=== PATIENT | male | born 1980 | race Two or more races ===

== ENCOUNTER 2019-05-31 10:44 | Emergency (ER) | payer OTHER ==
[2019-05-31 10:49] VITALS: BMI 36.6
--- NOTE | 2019-05-31 12:58 | PDOC ---
History of Present Illness - General Chief Complaint: Constipation Stated Complaint: CONSTIPATION Time Seen by Provider: 05/31/19 11:02 History Source: Patient Exam Limitations: No Limitations - History of Present Illness Travel History: No Initial Comments: 05/31/19 11:53 39-year-old male presents the emergency room for evaluation of decreased bowel movements over the past 2 days along with decreased appetite. patient with history of cerebral palsy but has a normal appetite otherwise. Brother states offered soup this morning but the patient did not tolerate nor did he vomit. Patient has no fever, abdominal distention, Increased irritability or anger. Patient does have history of ruptured appendicitis with exploratory surgery a few years ago but has not had history of constipation or obstruction. Timing/Duration: reports: changing over time Past History - Travel Traveled outside of the country in the last 30 days: No Close contact w/someone who was outside of country & ill: No - Past Medical History Allergies/Adverse Reactions: Allergies Allergy/AdvReac Type Severity Reaction Status Date / Time No Known Allergies Allergy Verified 05/31/19 10:50 Home Medications: Ambulatory Orders Amox-Tr/K Cl [Augmentin 500Mg Tablet] 1 tab PO BID #14 tablet 09/09/13 Famotidine [Pepcid -] 20 mg PO BID 09/09/13 Metoprolol Succinate [Toprol XL -] 25 mg PO DAILY 09/09/13 Sennosides [Senna Lax] 2 tab PO ONCE #2 tablet 05/31/19 COPD: No HTN: Yes - Surgical History Appendectomy: Yes - Psycho Social/Smoking Cessation Hx Smoking History: Never smoked Information on smoking cessation initiated: No Hx Alcohol Use: No Drug/Substance Use Hx: No Patient Lives Alone: No Lives with/in: parents Review of Systems - Review of Systems Able to Perform ROS?: Yes Constitutional: No: Symptoms Reported HEENTM: No: Symptoms Reported Respiratory: Yes: Symptoms reported Cardiac (ROS): No: Symptoms Reported ABD/GI: Yes: Constipated (x 2), Poor Appetite Musculoskeletal: Yes: See HPI Integumentary: No: Symptoms Reported Neurological: No: Symptoms reported Endocrine: No: Symptoms Reported Hematologic/Lymphatic: No: Symptoms Reported *Physical Exam - Vital Signs Last Vital Signs Temp Pulse Resp BP Pulse Ox 85 17 135/73 98 05/31/19 10:48 05/31/19 10:48 05/31/19 10:48 05/31/19 10:48 - Physical Exam General Appearance: Yes: Nourished, Appropriately Dressed. No: Apparent Distress HEENT: positive: Pharynx Normal Neck: positive: Supple Respiratory/Chest: positive: Lungs Clear, Normal Breath Sounds. negative: Respiratory Distress, Accessory Muscle Use Cardiovascular: positive: Regular Rhythm, Regular Rate. negative: Murmur Gastrointestinal/Abdominal: positive: Normal Bowel Sounds, Soft. negative: Distended, Tenderness Extremity: positive: Normal Inspection Integumentary: positive: Normal Color, Warm, Moist Neurologic: positive: Normal Mood/Affect (Active and at baseline as per brother) , Motor Strength 5/5 (Moves his upper extremities without difficulty) ED Treatment Course - RADIOLOGY Radiology Studies Ordered: Category Date Time Status ABDOMEN FLAT & UPRIGHT [RAD] Stat Radiology 05/31/19 11:04 Completed Medical Decision Making - Medical Decision Making 05/31/19 11:59 Chief complaint: Patient here with poor appetite this a.m. associated with no bowel movement for the past 2 days. Father states last BM normal and soft. Patient has no history of obstruction or constipation. Patient is wheelchair- bound with history of CP exam: Bowel sounds present x4 vital signs stable, otherwise normal clinical exam. Plan: Abdominal flat and upright ordered 05/31/19 12:59 X-ray essentially negative for acute pathology. Patient given orange juice which he tolerated without difficulty or noted discomfort. Recommended brother try fiber enriched foods and will give a dose of senna Discharge - Discharge Information Problems reviewed: Yes Clinical Impression/Diagnosis: Decreased frequency of bowel movements Condition: Improved Disposition: HOME - Additional Discharge Information Prescriptions: Sennosides [Senna Lax] 2 tab PO ONCE #2 tablet - Follow up/Referral Referrals: Leodan Russell MD [Primary Care Provider] - - Patient Discharge Instructions Additional Instructions: Please give patient plenty of water and give fiber enriched foods. Please also give senna today as prescribed. If symptoms do not improve or worsen please call the ER return to the ER. - Post Discharge Activity
[2019-05-31 13:12] VITALS: BP 123/80; PULSE 83
== END 2019-05-31 13:12 | disposition home or self-care (01) ==
LOC: JER 10:44
DX: R19.4 Change in bowel habit (principal); I10 Essential (primary) hypertension; G80.9 Cerebral palsy, unspecified; Z99.3 Dependence on wheelchair
CPT/HCPCS: 74019-TC-FY; 99281-25

== ENCOUNTER 2021-04-28 09:56 | Observation (INO) | payer OTHER ==
[2021-04-28] MEDS ORDERED: ACETAMINOPHEN 1000 MG/100 ML VIAL IVPB ONE (10:45)
[2021-04-28] MEDS ORDERED: ACETAMINOPHEN INJECTION 100 ML IVPB ONE (10:53)
[2021-04-28 11:25] LABS: BASO % 0.5 % (0-2.0); EOS % 0.5 % (0-4.5); HEMATOCRIT 42.2 % (35.4-49); HEMOGLOBIN 14.2 GM/dL (11.7-16.9); LYMPH % 18.5 % (8-40); MCH 28.8 pg (25.7-33.7); MCHC 33.7 g/dl (32.0-35.9); MEAN CELL VOLUME 85.4 fl (80-96); MEAN PLT VOLUME 10.6 fl (7.5-11.1); MONO % 10.2 % (3.8-10.2); NEUT % 70.3 % (42.8-82.8); PLATELET COUNT 75 10^3/uL (134-434); RBC 4.94 M/mm3 (4.00-5.60); RDW 13.1 % (11.9-15.9); WHITE BLOOD COUNT 6.6 K/mm3 (4.0-10.0)
[2021-04-28 11:34] LABS: INR 1.23 (0.83-1.09); PROTHROMBIN TIME (PATIENT) 14.4 SEC (9.7-13.0)
[2021-04-28 11:36] LABS: ACTIVATED PTT 27.7 SECONDS (25.2-36.5)
[2021-04-28 11:54] LABS: CHLORIDE 110 mmol/L (98-107); SODIUM 141 mmol/L (136-145)
[2021-04-28 11:55] LABS: CALCIUM 8.6 mg/dL (8.5-10.1)
[2021-04-28 11:56] LABS: ALBUMIN 3.3 g/dl (3.4-5.0); ANION GAP 7 MMOL/L (8-16); BLOOD UREA NITROGEN 18.3 mg/dL (7-18); CO2 25 mmol/L (21-32); GLUCOSE,RANDOM 125 mg/dL (74-106)
[2021-04-28 11:59] LABS: CREATININE 1.1 mg/dL (0.55-1.3); SGOT/AST 45 U/L (15-37); SGPT/ALT 79 U/L (13-61)
[2021-04-28 12:01] LABS: BILIRUBIN,TOTAL 0.5 mg/dL (0.2-1); TOT PROT 6.9 g/dl (6.4-8.2)
[2021-04-28 12:02] LABS: ALK PHOS 70 U/L (45-117)
[2021-04-28] MEDS ORDERED: METOPROLOL TARTRATE 25 MG TABLET (FP) PO ONE (16:47)
[2021-04-28 16:53] LABS: EPI CELLS 6 /uL (0-25.1); HYALINE CASTS 0 /uL (0-3.1); URINE APPEARANCE CLEAR; URINE BACTERIA 25 /uL (0-1359); URINE BILIRUBIN NEGATIVE (NEGATIVE); URINE COLOR YELLOW; URINE GLUCOSE (UA) NEGATIVE (NEGATIVE); URINE KETONE NEGATIVE (NEGATIVE); URINE LEUK ESTERASE NEGATIVE (NEGATIVE); URINE NITRITE NEGATIVE (NEGATIVE); URINE PROTEIN 1+ (NEGATIVE); URINE RBC 13 /uL (0-23.9); URINE WBC 8 /uL (0-25.8)
[2021-04-28] MEDS ORDERED: SODIUM CHLORIDE 0.9% 500 ML INFUS.BAG IV ONE (17:26)
[2021-04-28] MEDS ORDERED: dilTIAZem HCL 50 MG/10 ML - 10 ML VIAL IVPUSH ONE (17:30)
[2021-04-28] MEDS ORDERED: METOPROLOL TARTRATE 25 MG TABLET (FP) ONE (17:36)
[2021-04-28] MEDS ORDERED: dilTIAZem HCL 125 MG/25 ML - 25 ML VIAL ONE (17:36)
[2021-04-28] MEDS ORDERED: FAMOTIDINE 20 MG/50 ML IVPB 20 MG/50 ML MG IVPB ONE (18:18)
[2021-04-28] MEDS ORDERED: SENNOSIDES 8.6MG TABLET (FP) PO ONE ×2 (19:00→19:28)
[2021-04-28] MEDS ORDERED: METOPROLOL TARTRATE 5 MG/5 ML VIAL ONE (22:39)
[2021-04-28] MEDS ORDERED: metoPROLOL SUCCINATE 25 MG TAB.SR.24H (FP) ONE (22:39)
[2021-04-28] MEDS ORDERED: FAMOTIDINE 20 MG TABLET ONE (22:39)
[2021-04-28] MEDS: METOPROLOL TARTRATE 5 MG/5 ML VIAL IVPUSH PRN (22:57)
[2021-04-28] MEDS: metoPROLOL SUCCINATE 25 MG TAB.SR.24H (FP) PO SCH (22:57)
[2021-04-28] MEDS: FAMOTIDINE 20 MG TABLET PO SCH (22:57)
[2021-04-28 23:22] LABS: CHOLESTEROL 181 mg/dL (50-200); TRIGLYCERIDES 84 mg/dL (0-150)
[2021-04-28 23:23] LABS: LDL CHOLESTEROL (ONLY SJRH) 100 mg/dL (5-100)
[2021-04-28 23:25] LABS: HDL CHOLESTEROL 60 mg/dL (40-60)
[2021-04-28 23:26] LABS: N-TERMINAL BNP 3217.7 pg/ml (5-125)
[2021-04-29 08:03] LABS: CALCIUM 8.3 mg/dL (8.5-10.1)
[2021-04-29 08:04] LABS: MAGNESIUM 2.3 mg/dL (1.8-2.4)
[2021-04-29 08:07] LABS: CREATININE 0.9 mg/dL (0.55-1.3)
[2021-04-29] MEDS: metoPROLOL SUCCINATE 25 MG TAB.SR.24H (FP) PO SCH ×2 (10:04→21:15)
[2021-04-29] MEDS: FAMOTIDINE 20 MG TABLET PO SCH ×2 (10:04→21:15)
[2021-04-29 11:35] VITALS: BMI 27.0
[2021-04-29] MEDS: METOPROLOL TARTRATE 5 MG/5 ML VIAL IVPUSH PRN ×2 (13:28→17:01)
[2021-04-30 07:19] LABS: BASO % 0.5 % (0-2.0); EOS % 0.9 % (0-4.5); HEMATOCRIT 36.8 % (35.4-49); HEMOGLOBIN 12.3 GM/dL (11.7-16.9); LYMPH % 38.3 % (8-40); MCH 28.6 pg (25.7-33.7); MCHC 33.3 g/dl (32.0-35.9); MEAN CELL VOLUME 85.9 fl (80-96); MEAN PLT VOLUME 11.4 fl (7.5-11.1); MONO % 13.3 % (3.8-10.2); PLATELET COUNT 71 10^3/uL (134-434); RBC 4.29 M/mm3 (4.00-5.60); WHITE BLOOD COUNT 5.7 K/mm3 (4.0-10.0)
[2021-04-30 07:36] LABS: CALCIUM 8.3 mg/dL (8.5-10.1)
[2021-04-30 07:37] LABS: BLOOD UREA NITROGEN 23.6 mg/dL (7-18)
[2021-04-30 07:41] LABS: BILIRUBIN,TOTAL 0.4 mg/dL (0.2-1); TOT PROT 5.9 g/dl (6.4-8.2)
[2021-04-30 07:45] LABS: ALBUMIN 2.6 g/dl (3.4-5.0)
[2021-04-30] MEDS: metoPROLOL SUCCINATE 25 MG TAB.SR.24H (FP) PO SCH ×2 (10:08→21:57)
[2021-04-30] MEDS: FAMOTIDINE 20 MG TABLET PO SCH ×2 (10:08→21:57)
[2021-04-30] MEDS ORDERED: PT OWN MED DRAWER 7, Y5N ONE ×2 (12:52→15:46)
[2021-04-30] MEDS: SACUBITRIL/VALSARTAN 24 MG-26 MG TABLET PO SCH ×2 (12:54→21:57)
[2021-05-01 06:52] LABS: EOS % 1.6 % (0-4.5); HEMATOCRIT 38.4 % (35.4-49); HEMOGLOBIN 13.1 GM/dL (11.7-16.9); LYMPH % 39.2 % (8-40); MCH 29.1 pg (25.7-33.7); MCHC 34.2 g/dl (32.0-35.9); MEAN PLT VOLUME 11.5 fl (7.5-11.1); MONO % 13.6 % (3.8-10.2); NEUT % 44.6 % (42.8-82.8); PLATELET COUNT 96 10^3/uL (134-434); RBC 4.51 M/mm3 (4.00-5.60); RDW 12.7 % (11.9-15.9); WHITE BLOOD COUNT 5.2 K/mm3 (4.0-10.0)
[2021-05-01 07:30] LABS: ALBUMIN 2.5 g/dl (3.4-5.0); BLOOD UREA NITROGEN 22.6 mg/dL (7-18); CALCIUM 8.2 mg/dL (8.5-10.1)
[2021-05-01 07:35] LABS: BILIRUBIN,TOTAL 0.3 mg/dL (0.2-1); TOT PROT 5.9 g/dl (6.4-8.2)
[2021-05-01] MEDS ORDERED: PT OWN MED DRAWER 7, Y5N ONE (08:42)
[2021-05-01] MEDS: SACUBITRIL/VALSARTAN 24 MG-26 MG TABLET PO SCH (09:23)
[2021-05-01] MEDS: FAMOTIDINE 20 MG TABLET PO SCH (09:23)
[2021-05-01] MEDS: metoPROLOL SUCCINATE 25 MG TAB.SR.24H (FP) PO SCH (09:23)
[2021-05-01 11:38] VITALS: BP 136/96; PULSE 94; TEMP 98
== END 2021-05-01 13:48 | disposition home or self-care (01) ==
LOC: JER 09:56 → INTOOBSV 16:26 → JERBED 16:26 → UNDOADMOB 16:26 → J4W 04-29 08:31 → JERBED 04-29 08:31 → J4W 04-29 09:13
PROVIDERS: ADMIT Internal Medicine
PROC: 3E033NZ Introduction of Analgesics, Hypnotics, Sedatives into Peripheral Vein, Percutaneous Approach (ICD-10-PCS; principal; 2021-04-29)
PROC: 3E0337Z Introduction of Electrolytic and Water Balance Substance into Peripheral Vein, Percutaneous Approach (ICD-10-PCS; 2021-04-29)
PROC: 3E033GC Introduction of Other Therapeutic Substance into Peripheral Vein, Percutaneous Approach (ICD-10-PCS; 2021-04-29)
DX: R41.82 Altered mental status, unspecified (principal); G80.9 Cerebral palsy, unspecified; F79 Unspecified intellectual disabilities; I48.20 Chronic atrial fibrillation, unspecified; I50.30 Unspecified diastolic (congestive) heart failure; D69.6 Thrombocytopenia, unspecified; I11.0 Hypertensive heart disease with heart failure; Z29.9 Encounter for prophylactic measures, unspecified; H54.7 Unspecified visual loss; I44.7 Left bundle-branch block, unspecified; E53.9 Vitamin B deficiency, unspecified; E55.9 Vitamin D deficiency, unspecified; K21.9 Gastro-esophageal reflux disease without esophagitis; R05.9 Cough, unspecified; B19.20 Unspecified viral hepatitis C without hepatic coma; R74.01 Elevation of levels of liver transaminase levels; J45.909 Unspecified asthma, uncomplicated; R19.4 Change in bowel habit; H66.90 Otitis media, unspecified, unspecified ear; Q02 Microcephaly; G47.30 Sleep apnea, unspecified
CPT/HCPCS: 36415; 71045-TC-FY; 74177-TC; 80048; 80053; 80061; 81003; 83036; 83605; 83735; 83880; 84443; 84484; 85025; 85610; 85730; 87040; 87086; 87651; 93005; 93010; 93306-TC; 96365; 96375; 99285-25; C9803; G0378; J0131; Q9967; U0003; U0005

== ENCOUNTER 2022-07-30 09:22 | Emergency (ER) | payer OTHER ==
[2022-07-30 09:33] VITALS: BMI 28.1
[2022-07-30 11:35] LABS: BASO % 0.3 % (0-2.0); HEMATOCRIT 42.5 % (35.4-49); HEMOGLOBIN 14.3 GM/dL (11.7-16.9); LYMPH % 15.4 % (8-40); MCH 28.2 pg (25.7-33.7); MCHC 33.7 g/dl (32.0-35.9); MEAN CELL VOLUME 83.5 fl (80-96); MEAN PLT VOLUME 10.1 fl (7.5-11.1); MONO % 11.2 % (3.8-10.2); NEUT % 73.1 % (42.8-82.8); PLATELET COUNT 105 10^3/uL (134-434); RBC 5.09 M/mm3 (4.00-5.60); RDW 12.5 % (11.9-15.9); WHITE BLOOD COUNT 6.2 K/mm3 (4.0-10.0)
[2022-07-30 12:02] LABS: ALBUMIN 3.9 g/dl (3.4-5.0)
[2022-07-30 12:04] LABS: BLOOD UREA NITROGEN 11.6 mg/dL (7-18)
[2022-07-30 12:06] LABS: CREATININE 0.9 mg/dL (0.55-1.3)
[2022-07-30 12:08] LABS: BILIRUBIN,TOTAL 0.3 mg/dL (0.2-1); TOT PROT 7.5 g/dl (6.4-8.2)
[2022-07-30 12:36] LABS: EPI CELLS >36 /uL (0-25.1); HYALINE CASTS 2 /uL (0-3.1); PH,URINE 5.5 (5.0-8.0); URINE APPEARANCE CLEAR; URINE BACTERIA 51 /uL (0-1359); URINE BILIRUBIN NEGATIVE (NEGATIVE); URINE COLOR YELLOW; URINE GLUCOSE (UA) NEGATIVE (NEGATIVE); URINE KETONE TRACE (NEGATIVE); URINE LEUK ESTERASE NEGATIVE (NEGATIVE); URINE NITRITE NEGATIVE (NEGATIVE); URINE PROTEIN 1+ (NEGATIVE); URINE RBC 453 /uL (0-23.9); URINE UROBILINOGEN 0.2 mg/dL (0.2-1.0)
[2022-07-30 12:40] LABS: URINE WBC 453.3 /uL (0-25.8)
[2022-07-30 13:28] VITALS: BP 117/63; PULSE 71; RESP 19; TEMP 98.8
== END 2022-07-30 13:28 | disposition home or self-care (01) ==
LOC: JER 09:22
DX: J10.1 Influenza due to other identified influenza virus with other respiratory manifestations (principal); R05.1 Acute cough
CPT/HCPCS: 0241U-QW; 36415; 71046-TC-FY; 80053; 81003; 85025; 87086; 99284-25

== ENCOUNTER 2023-06-14 04:45 | Day surgery (SDC) | payer OTHER ==
[2023-06-08 10:06] VITALS: BMI 28.1
[2023-06-14] MEDS ORDERED: ONDANSETRON 4 MG/2 ML VIAL IVPUSH PRN (12:51)
[2023-06-14] MEDS ORDERED: PROMETHAZINE HCL 25 MG/1 ML VIAL IVPB PRN (12:51)
[2023-06-14] MEDS ORDERED: LACTATED RINGERS SOLUTION 1,000 ML IV SCH ×2 (13:00→16:30)
[2023-06-14] MEDS ORDERED: BUPIVACAINE HCL/PF 0.25% (2.5MG/ML) 10 ML VIAL ONE (13:10)
[2023-06-14] MEDS ORDERED: BACITRACIN ZINC 15 GM TUBE TOPICAL OINTMENT ONE (13:11)
[2023-06-14] MEDS ORDERED: ROCURONIUM BROMIDE 50 MG/5 ML SYRINGE ONE (15:33)
[2023-06-14] MEDS ORDERED: PROPOFOL 20 ML ONE (15:33)
[2023-06-14] MEDS ORDERED: ceFAZolin 2 GRAM PREMIX BAG IVPB ONE (15:40)
[2023-06-14] MEDS ORDERED: BUPIVACAINE HCL/PF 0.25% (2.5MG/ML) 10 ML VIAL IJ ONE (16:13)
[2023-06-14 17:59] VITALS: RESP 18
[2023-06-14 19:30] VITALS: BP 112/63; PULSE 90; TEMP 97.6
== END 2023-06-14 19:33 | disposition home or self-care (01) ==
LOC: JASU-SURG 04:45
PROVIDERS: ATTEND Urology
PROC: 0VTTXZZ Resection of Prepuce, External Approach (ICD-10-PCS; principal; 2023-06-14 15:00)
DX: N47.1 Phimosis (principal)
CPT/HCPCS: 94760